=== PATIENT | male | born 1955 | race Caucasian/White ===

== ENCOUNTER 2017-09-19 05:40 | Emergency (ER) | payer MEDICAID ==
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
[2017-09-19 06:49] LABS: ALB/GLOB RATIO 1.2 (1.0-2.1); ALKALINE PHOSPHATASE 36 U/L (38-126); ALT/SGPT 44 U/L (21-72); AST/SGOT 29 U/L (17-59); BILIRUBIN,TOTAL 0.5 mg/dl (0.2-1.3); BLOOD UREA NITROGEN 19 mg/dl (9-20); CALCIUM 9.2 mg/dL (8.4-10.2); CARBON DIOXIDE 28 mmol/L (22-30); CHLORIDE 105 mmol/L (98-107); GFR AFRICAN-AMERICAN > 60; GLUCOSE,RANDOM 117 mg/dL (75-110); SODIUM 141 mmol/l (132-148); TOTAL PROTEIN 7.3 G/DL (6.3-8.2)
[2017-09-19 06:50] LABS: BASO # 0.1 K/uL (0.0-0.2); BASO % 1.3 % (0.0-2.0); EOS # 0.1 K/uL (0.0-0.7); HEMATOCRIT 43.9 % (35.0-51.0); LYMPH # 2.1 K/uL (1.0-4.3); LYMPH % 51.3 % (20.0-40.0); MEAN CORPUSCULAR HEMOGLOBIN 28.5 pg (27.0-31.0); MEAN CORPUSCULAR HGB CONC 32.7 g/dL (33.0-37.0); MEAN PLATELET VOLUME 9.6 fl (7.2-11.7); MONO # 0.4 K/uL (0.0-0.8); MONO % 9.7 % (0.0-10.0); NEUT # 1.4 K/uL (1.8-7.0); NEUT % 34.7 % (50.0-75.0); NRBC % 0.3 % (0.0-0.0); RED CELL DISTRIBUTION WIDTH 14.1 % (11.5-14.5); WHITE BLOOD COUNT 4.2 K/uL (4.8-10.8)
--- NOTE | 2017-09-19 07:59 | ED PDOC ---
- Laboratory Results Result Diagrams: 09/19/17 06:34 09/19/17 06:34 - ECG O2 Sat by Pulse Oximetry: 94 (RA) Medical Decision Making Medical Decision Making: Patient was signed out to me by Dr. Betancourt at 7:00AM, pending re-evaluation. Progress note: Patient was evaluated. Patient reports significant improvement of symptoms, denies any complaints at this time. Labs reviewed, found to be unremarkable. Patient is stable for discharge. Scribe Attestation: Documented by Radha Wood, acting as a scribe for Jasmin Black MD Provider Scribe Attestation: All medical record entries made by the Scribe were at my direction and personally dictated by me. I have reviewed the chart and agree that the record accurately reflects my personal performance of the history, physical exam, medical decision making, and the department course for this patient. I have also personally directed, reviewed, and agree with the discharge instructions and disposition. Disposition - Clinical Impression Clinical Impression: Headache, Hypertension - POA Present On Arrival: None - Disposition Referrals: Manpreet Santos MD [Primary Care Provider] - Disposition: Routine/Home Disposition Time: 08:50 Condition: GOOD Additional Instructions: Follow up with your PCP in 3 days. Instructions: Hypertension (ED)
[2017-09-19 08:54] VITALS: BP 162/90; RESP 20; TEMP 98.4
[2017-09-21 08:35] VITALS: PULSE 67; O2SAT 94
== END 2017-09-19 08:54 | disposition home or self-care (01) ==
LOC: H.ER 05:40
DX: R51 Headache (principal); I10 Essential (primary) hypertension; E78.00 Pure hypercholesterolemia, unspecified; Z79.82 Long term (current) use of aspirin
CPT/HCPCS: 80053; 85025; 96374; 99285; J1885